=== PATIENT | female | born 1940 | race Caucasian/White ===

== ENCOUNTER 2022-01-13 08:11 | Emergency (ER) | payer MEDICARE, OTHER ==
[2022-01-13] MEDS ORDERED: ACETAMINOPHEN 325 MG TABLET PO STA (08:43)
--- NOTE | 2022-01-13 08:47 | ED Physician Documentation ---
History of Present Illness - Stated complaint Stated Complaint: R WRIST INJ - Chief complaint Chief Complaint: Trauma Ext - History obtained from History obtained from: Patient - History of Present Illness Timing: Yesterday Pain level max: 6 Pain level now: 5 - Additonal information Additional information: 81 year old female was playing pickle ball yesterday when she fell and injured her R wrist. Worse with movement, better with rest. She thinks she may have hit her head as well. She takes Eliquis. No headache. no neck pain. Review of Systems Constitutional: denies: Fever, Chills GI: denies: Vomiting Neurologic: denies: Confused, Altered mental status, Headache, LOC PD PAST MEDICAL HISTORY - Past Medical History Past Medical History: Yes Cardiovascular: Hypertension, Coronary artery disease - Present Medications Home Medications: Ambulatory Orders Medication Instructions Recorded Confirmed Apixaban [Eliquis] 5 mg PO BID 01/13/22 01/13/22 Atorvastatin [Lipitor] 10 mg PO DAILY 01/13/22 01/13/22 Loratadine [Claritin] 10 mg PO DAILY 01/13/22 01/13/22 Metoprolol Succinate [Toprol Xl] 50 mg PO DAILY 01/13/22 01/13/22 - Allergies Allergies/Adverse Reactions: Allergies Allergy/AdvReac Type Severity Reaction Status Date / Time amantadine Allergy Unknown Verified 01/13/22 08:28 amlodipine Allergy Unknown Verified 01/13/22 08:28 chocolate flavor Allergy Unknown Verified 01/13/22 08:28 ciprofloxacin Allergy Unknown Verified 01/13/22 08:28 coconut Allergy Unknown Verified 01/13/22 08:28 coffee (Coffea arabica) Allergy Unknown Verified 01/13/22 08:28 Fish Containing Products Allergy Unknown Verified 01/13/22 08:28 Iodinated Contrast Media Allergy Unknown Verified 01/13/22 08:28 levofloxacin [From Levaquin] Allergy Unknown Verified 01/13/22 08:28 nut - unspecified Allergy Unknown Verified 01/13/22 08:28 prochlorperazine Allergy Unknown Verified 01/13/22 08:28 [From Compazine] shellfish derived Allergy Unknown Verified 01/13/22 08:28 soy Allergy Unknown Verified 01/13/22 08:28 Sulfa (Sulfonamide Allergy Unknown Verified 01/13/22 08:28 Antibiotics) acyclovir AdvReac Rash Verified 01/13/22 08:28 Acyclovir Analogues AdvReac Rash Verified 01/13/22 08:28 codeine AdvReac Emesis Verified 01/13/22 08:28 hydrocodone AdvReac Unknown Verified 01/13/22 08:28 tramadol AdvReac Emesis Verified 01/13/22 08:28 basil oil Allergy Unknown Uncoded 01/13/22 08:28 cola Allergy Unknown Uncoded 01/13/22 08:28 linares Allergy Unknown Uncoded 01/13/22 08:28 oregano oil Allergy Unknown Uncoded 01/13/22 08:28 - Living Situation Living Arrangement: reports: At home - Social History Does the pt have substance abuse?: No PD ED PE NORMAL - Vitals Vital signs reviewed: Yes - General General: Alert and oriented X 3, No acute distress - HEENT HEENT: Atraumatic, PERRL, EOMI, Moist mucous membranes - Neck Neck: Supple, no meningeal sign, No bony TTP, Other (FROM without pain) - Cardiac Cardiac: RRR, Strong equal pulses - Respiratory Respiratory: No respiratory distress, Clear bilaterally - Abdomen Abdomen: Soft, Non tender, Non distended - Derm Derm: Warm and dry - Extremities Extremities: Other (TTP diffusely about the R wrist. NVI. limited ROM 2/2 pain.) - Neuro Neuro: Alert and oriented X 3, quill worker 2-12 intact, No motor deficit, No sensory deficit, Normal speech Eye Opening: Spontaneous Motor: Obeys Commands Verbal: Oriented GCS Score: 15 - Psych Psych: Normal mood, Normal affect Results - Vitals Vitals: Vital Signs - 24 hr 01/13/22 01/13/22 08:21 10:15 Temperature 37 C 36.5 C Heart Rate 64 65 Respiratory 14 15 Rate Blood Pressure 150/59 H 148/64 H O2 Saturation 100 100 Oxygen O2 Source Room air - Rads (name of study) head CT Radiology: Final report received, EMP read contemporaneously, See rad report (no acute abnormality) R wrist xray Radiology: Final report received, EMP read contemporaneously, See rad report PD MEDICAL DECISION MAKING - ED course Complexity details: reviewed results, re-evaluated patient, considered differential, d/w patient, d/w family ED course: 81-year-old female status post ground-level fall yesterday. Has a nondisplaced distal scaphoid fracture on x-ray. 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 She did not tolerate a fiberglass splint well, therefore she was placed into a Velcro thumb spica that she will leave in place. Patient is returning home on Saturday and will follow up with an orthopedist then. Head CT does not show any acute abnormalities. Patient counseled regarding signs and symptoms for which I believe and urgent re-evaluation would be necessary. Patient with good understanding of and agreement to plan and is comfortable going home at this time This document was made in part using voice recognition software. While efforts are made to proofread this document, sound alike and grammatical errors may occur. Neurovascularly intact after splint application IMPRESSION: Nondisplaced distal scaphoid fracture. Cystic changes within the lunate with very mild positive ulnar variance. Recommend correlation for ulnar impaction syndrome. Chondrocalcinosis. Departure - Departure Disposition: 01 Home, Self Care Clinical Impression: Scaphoid fracture of wrist Qualifiers: Encounter type: initial encounter Scaphoid bone location: unspecified portion of scaphoid Fracture type: closed Fracture alignment: nondisplaced Laterality: right Qualified Code(s): S62.001A - Unspecified fracture of navicular [scaphoid] bone of right wrist, initial encounter for closed fracture Condition: Good Instructions: ED Fx Wrist Navicular Poss Follow-Up: Orthopedic Care [Provider Group] - Within 1 week Comments: Please follow up with orthopedics for further care. You should have repeat xrays in 1 week. Keep the splint in place. Return if you worsen. You can also follow- up with an orthopedist when you return home next week. Right wrist xray IMPRESSION: Nondisplaced distal scaphoid fracture. Cystic changes within the lunate with very mild positive ulnar variance. Recommend correlation for ulnar impaction syndrome. Chondrocalcinosis. Discharge Date/Time: 01/13/22 10:30
--- NOTE | 2022-01-13 08:50 | XRAY Report ---
PROCEDURE: Wrist 4 View RT INDICATIONS: fall, R wrist pain TECHNIQUE: 4 views of the wrist were acquired. COMPARISON: None FINDINGS: Bones: Osseous structures are demineralized. Nondisplaced distal scaphoid fracture with punctate brielle cent calcification. Cystic changes noted within the lunate. Minimal positive ulnar variance. Soft tissues: Mild chondrocalcinosis. Soft tissue swelling in the wrist. IMPRESSION: Nondisplaced distal scaphoid fracture. Cystic changes within the lunate with very mild positive ulnar variance. Recommend correlation for ul bonnie impaction syndrome. Chondrocalcinosis. Reviewed by: Lucas Haddad DO on 01/13/2022 7:49 AM AIDA Approved by: Lucas Haddad DO on 01/13/2022 7:49 AM AIDA Station ID: [id number]
--- NOTE | 2022-01-13 09:12 | CT Report ---
PROCEDURE: HEAD WO INDICATIONS: Trauma, fall, on eliquis TECHNIQUE: Noncontrast 4.5 mm thick angled axial sections acquired from the foramen magnum to the vertex. For r adiation dose reduction, the following was used: automated exposure control, adjustment of mA and/or kV according to patient size. COMPARISON: None. FINDINGS: Image quality: Excellent. CSF spaces: Basal cisterns are patent. No extra-axial fluid collections. Ventricles are normal in size and shape. Brain: No midline shift. No intracranial masses or hemorrhage. Santiago-white matter interface is norm al. Skull and face: Calvarium and visualized facial bones are intact, without suspicious lesions. Sinuses: Visualized sinuses and mastoids are clear. IMPRESSION: No acute intracranial finding. Reviewed by: Refugio Troncoso MD on 01/13/2022 9:10 AM PDT Approved by: Refugio Troncoso MD on 01/13/2022 9:10 AM PDT Station ID: [id number]
[2022-01-13 10:16] VITALS: BP 148/64
== END 2022-01-13 10:30 | disposition home or self-care (01) ==
LOC: ED 08:11
DX: S62.001A Unspecified fracture of navicular [scaphoid] bone of right wrist, initial encounter for closed fracture (principal); W19.XXXA Unspecified fall, initial encounter; Y93.69 Activity, other involving other sports and athletics played as a team or group
CPT/HCPCS: 70450; 73110; 99284; A9270